=== PATIENT | male | born 1985 | race Two or more races ===

== ENCOUNTER 2022-03-12 19:54 | Emergency (ER) | payer MEDICAID ==
[~2022-03-12] VITALS: Ht 147.3 cm; Wt 63.5 kg
[2022-03-12] MEDS ORDERED: IV NORMAL SALINE 1000 ML BAG IV ONE (20:30)
[2022-03-12 20:43] LABS: HEMATOCRIT 37.9 % (36.7-47.1); MEAN CORPUSCULAR HEMOGLOBIN 32.4 uug (23.8-33.4); MEAN CORPUSCULAR VOLUME 95.9 fL (73.0-96.2); PLATELET COUNT (AUTO) 187 K/uL (152-348)
[2022-03-12 20:54] LABS: CARBON DIOXIDE 22 mmol/L (21-32); CHLORIDE 105 mmol/L (98-107); CREATININE 0.8 mg/dL (0.6-1.3); GLUCOSE 158 mg/dL (74-106); POTASSIUM 3.4 mmol/L (3.5-5.1); UREA NITROGEN, BLOOD 12 mg/dL (7-18)
[2022-03-12 21:01] LABS: ALANINE AMINOTRANSFERASE 170 U/L (16-63); ALKALINE PHOSPHATASE 54 U/L (50-136); ASPARTATE AMINOTRANSFERASE 178 U/L (15-37); BILIRUBIN,DIRECT 0.2 mg/dL (0.0-0.2); BILIRUBIN,TOTAL 0.6 mg/dL (0.2-1.0); CREATINE KINASE, TOTAL 392 U/L (39-308)
[2022-03-12 21:11] LABS: THYROID STIMULATING HORMONE 0.934 mIU/mL (0.358-3.740)
[2022-03-12 21:27] LABS: ETHANOL < 3 MG/DL (0-0)
--- NOTE | 2022-03-12 21:28 | NUR ---
Patient discharged to home in stable condition. Written and verbal after care instructions given. Patient verbalizes understanding of instructions. Stressed follow up or return to ER for worsening s/s. pt ambulated wtih steady gait. denies pain. AOx4
[2022-03-12 21:35] VITALS: BP 121/91
[2022-03-12 21:36] LABS: ACETAMINOPHEN < 2.0 ug/mL (10-30)
== END 2022-03-12 21:36 | disposition home or self-care (01) ==
LOC: ER 19:57
DX: S40.022A Contusion of left upper arm, initial encounter (principal); S40.021A Contusion of right upper arm, initial encounter; S80.12XA Contusion of left lower leg, initial encounter; S80.11XA Contusion of right lower leg, initial encounter; S09.90XA Unspecified injury of head, initial encounter; Y09 Assault by unspecified means; Y92.89 Other specified places as the place of occurrence of the external cause; E87.2 Acidosis; E87.6 Hypokalemia; R79.89 Other specified abnormal findings of blood chemistry; R94.31 Abnormal electrocardiogram [ECG] [EKG]
CPT/HCPCS: 36415; 70450; 83605; 84443; 84484; 85025; 93005; A4663; G0480; J7040